=== PATIENT | female | born 1965 | race Hispanic/Latino ===

== ENCOUNTER 2025-07-23 18:22 | Emergency (ER) | payer SELFPAY ==
[~2025-07-23] VITALS: Ht 152.4 cm; Wt 49.9 kg
[2025-07-23] MEDS ORDERED: IOHEXOL-350 75 ML VIAL IV ONE (18:33)
--- NOTE | 2025-07-23 18:41 | ERN ---
ED Note History of Present Illness Stated Complaint: SLURRED SPEECH AND LEFT FACIAL DROOPING Chief Complaint: Stroke Symptoms Time Seen by MD: 18:28 Dictation: 60-year-old female presenting to the emergency department with left-sided weakness to the upper and lower extremity and left facial droop, last known well was yesterday at noon symptoms have persisted since. Patient does not give clear history but reports that she feels fine. Allergies: Coded Allergies: No Known Drug Allergies (Unverified Allergy, Unknown, 07/23/25) Past Medical History Past Medical History: Diabetes-Type II, Hypertension Surgical History: Other Surgical History Other: RIGHT FOOT SURGERY WITH METAL IMPLANT Review of System Dictation Constitutional: Negative for fever,chills, and weight loss Eyes: Negative for injury, pain,redness, and discharge ENT: Negative for injury,pain or swelling Cardiovascular: Negative for chest pain, palpitations, and edema Respiratory: Negative for shortness of breath, cough, and wheezing, Abdomen/GI: Negative for abdominal pain, nausea, vomiting, diarrhea, and constipation Back: Negative for injury and pain : Negative for injury, bleeding and discharge MS/Extremity: Negative for injury and deformity Skin: Negative for rash, and discoloration Neuro: Per HPI Initial Vital Sign VS Vital Signs Date Time Temp Pulse Resp B/P (MAP) Pulse Ox O2 Delivery O2 Flow Rate FiO2 07/23/25 18:24 97.9 110 16 193/116 99 Room Air 07/23/25 18:55 0 21 Physical Exam Dictation General: awake, alert, appears ill Head/Face: Normocephalic, atraumatic Eyes: PERRL, EOMI, vision at baseline ENT: oral cavity clear, TMs clear, no signs of infection Neck: Trachea midline, supple, no nuchal rigidity Cardiovascular: RRR, normal S1/S2, No MRGs, no JVD Respiratory: CTAB, no respiratory distress, No rales or wheezes Abdomen: Soft, non-tender, non-distended, normal bowel sounds, no guarding or rebound. Skin: Warm, dry, normal turgor, no rash MS/Extremity: Pulses equal, no cyanosis, neurovascular intact, FROM Neuro: COAx4, GCS 15, left upper and lower extremity weakness noted 3/5 strength, right facial droop. NIHSS of 14 by me. Results (Laboratory/Radiology) Laboratory/Radiology Laboratory Tests Test 07/23/25 18:48 White Blood Count 7.0 K/uL (4.8-10.8) Red Blood Count 3.42 MIL/uL (4.00-5.50) L Hemoglobin 10.0 g/dL (12.0-16.0) L Hematocrit 29.7 % (36-48) L Mean Corpuscular Volume 86.8 fL (79-99) Mean Corpuscular Hemoglobin 29.2 pg (27.0-33.0) Mean Corpuscular Hemoglobin Concent 33.7 g/dL (32.0-36.0) Red Cell Distribution Width 13.0 % (11.0-15.5) Platelet Count 310 K/uL (130-400) Mean Platelet Volume 9.8 fL (7.5-10.5) Immature Granulocyte % (Auto) 0.7 % (0-1) Neutrophils (%) (Auto) 75.8 % (40.0-77.0) Lymphocytes (%) (Auto) 17.0 % (21.0-51.0) L Monocytes (%) (Auto) 5.2 % (3.0-13.0) Eosinophils (%) (Auto) 0.7 % (0.0-8.0) Basophils (%) (Auto) 0.6 % (0.0-5.0) Neutrophils # (Auto) 5.3 K/uL (1.8-7.7) Lymphocytes # (Auto) 1.2 K/uL (1.0-4.8) Monocytes # (Auto) 0.4 K/uL (0.1-1.0) Eosinophils # (Auto) 0.05 K/uL (0.00-0.70) Basophils # (Auto) 0.04 K/uL (0.00-0.20) Absolute Immature Granulocyte (auto 0.05 K/uL (0-1) Nucleated Red Blood Cells 0.0 % (0.0-0.19) Prothrombin Time 10.6 SEC (9.6-11.6) Prothromb Time International Ratio 1.00 (0.85-1.15) Activated Partial Thromboplast Time 25.3 SEC (26.3-35.5) L Sodium Level 128 mmol/L (136-145) L Potassium Level 4.5 mmol/L (3.5-5.1) Chloride Level 96 mmol/L (101-111) L Carbon Dioxide Level 24 mmol/L (21-32) Blood Urea Nitrogen 25 mg/dL (7-18) H Creatinine 1.1 mg/dL (0.5-1.0) H Glomerular Filtration Rate Calc 58 mL/min (>90) Random Glucose 235 mg/dL (70-105) H Total Calcium 8.0 mg/dL (8.5-10.1) L Total Bilirubin 0.5 mg/dL (0.2-1.0) Direct Bilirubin 0.1 mg/dL (0.0-0.3) Aspartate Amino Transf (AST/SGOT) 10 U/L (10-37) Alanine Aminotransferase (ALT/SGPT) 13 U/L (12-78) Alkaline Phosphatase 52 U/L (50-136) Total Creatine Kinase 12 U/L (21-232) L Troponin I High Sensitivity 4 ng/L (4-50) Total Protein 6.8 g/dL (6.0-8.3) Albumin 2.7 g/dL (3.5-5.0) L Labs Reviewed?: Yes EKG: (+) NSR, (+) rhythm, (+) nonspecific ST T wave chg, (+) nonspecific ST T wave chg ED Course ED Course Orders Procedure Category Date Status Time Ct Head/Brain W/O CT 07/23/25 Resulted Contrast 18:29 Ct Angio Head And Neck CT 07/23/25 Resulted 18:29 12 Lead Ekg Tracing- EKG 07/23/25 Complete Technical 18:29 Basic Metabolic Panel LAB 07/23/25 Complete 18:29 Cbc With Differential LAB 07/23/25 Complete 18:29 Hepatic Function Panel LAB 07/23/25 Complete 18:29 Creatine Kinase, Total LAB 07/23/25 Complete 18:29 Troponin I High LAB 07/23/25 Complete Sensitivity 18:29 Pt And Ptt LAB 07/23/25 Complete 18:29 Chest 1vw RAD 07/23/25 Resulted 18:29 Iohexol (Omnipaque) PHA 07/23/25 Complete 18:33 Aspirin 81mg Chew Tab PHA 07/23/25 Complete (Aspirin 81mg Chew 19:30 Aspirin 300mg Supp PHA 07/23/25 Complete (Aspirin 300mg Supp) 20:30 Current Medications Medications (Trade) Dose Ordered Sig/Brent Route PRN Reason Start Time Stop Time Status Last Admin Dose Admin Aspirin (Aspirin 300mg Supp) 300 mg ONCE ONCE ME 07/23/25 20:30 07/23/25 20:31 DC 07/23/25 20:44 Aspirin (Aspirin 81mg Chew Tab) 81 mg ONCE ONCE PO 07/23/25 19:30 07/23/25 19:31 DC Iohexol (Omnipaque) 75 ml STK-MED ONCE IV 07/23/25 18:33 07/23/25 18:33 DC Vital Signs Date Time Temp Pulse Resp B/P (MAP) Pulse Ox O2 Delivery O2 Flow Rate FiO2 07/23/25 22:01 98.8 98 18 130/66 100 Room Air* 0 21 07/23/25 20:18 98.8 101 18 155/111 99 Room Air* 0 21 07/23/25 18:55 107 14 178/102 98 Room Air* 0 21 07/23/25 18:24 97.9 110 16 193/116 99 Room Air Medical Decision Making MDM MDM: Differential diagnosis: Rationale: Tests considered and ordered secondary to shared decision making include: labs, ECG and radiology Previous outside records reviewed: Old ER visits. Risk of complication and/or morbidity or mortality of patient management: None Medications-Per medication reconciliation Need for hospitalization: Patient does meet criteria for hospitalization. Need for emergency major/minor surgery: No There are no social concerns with this patient. Prescription drug management Prescriptions will include symptomatic care Patient's prior external medical records from other ER visits were reviewed by me as indicated. Prior testing and results from previous visits were reviewed. Prior tests were taken into account with medical decision making and resource utilization, independent historian/historians were used to obtain complete medical history. I independently interpreted the test that were performed, results were reviewed by me and considered findings on radiology if ordered. Medical management and examination interpretation discussions were had by me with other qualified healthcare professionals as indicated for the patient's care. 60-year-old female with signs of LV 0, acute ischemic stroke, NIH stroke scale of 11 on arrival outside of thrombolytic window due to last known well time being yesterday noon, onset of endovascular therapy window due to over 24 hours, CT head and CT angio of the head and neck ordered, we will allow for permissive hypertension and full-dose aspirin we will transfer to [facility] stroke center. Patient handed off at shift change pending transfer set up oncoming physician Dr Lopez, made aware of plan and therapy, patient should be NPO and advised house soup of transfer. Critical Care Note Comment(s) Total critical care time was 33 minutes. Excluding time for procedures. Management of critically ill patient with concern for acute decompensation. Management included interpretation of laboratory values and imaging, hemodynamics, time for consultation with consultants and admitting physician. DX & DISP Disposition: Transfer Departure Impression: Primary Impression: CVA (cerebral vascular accident) Additional Impression: Arterial ischemic stroke, MCA (middle cerebral artery), right, acute Condition: Stable Case discussed with the neurosurgeon vascular Dr. ragland who accepted the transfer/consult pending hospitalist team from [facility] to call back to proceed with the transfer. Received a call from transfer center, patient was accepted at [facility] by hospitalist. LIMA DUPREE MD Jul 23, 2025 18:41 SHAHID MELGAR MD Jul 23, 2025 19:21
--- NOTE | 2025-07-23 18:52 | EKG ---
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
--- NOTE | 2025-07-23 18:52 | HMCIMG ---
EXAM: CT Head Without IV contrast. CLINICAL HISTORY: CVA TECHNIQUE: Axial computed tomography images of the head/brain without intravenous contrast. COMPARISON: None provided. FINDINGS: BRAIN: No evidence of acute hemorrhage. No mass lesion. No CT evidence for acute territorial infarct. No midline shift or extra-axial collections. Diffuse cerebral volume loss in the form of prominent cortical sulci and the ventricular system. Gliosis in the right parietooccipital region. Diffuse hypodensities in the bilateral periventricular white matter are suggestive of moderate chronic small-vessel ischemic changes. VENTRICLES: No hydrocephalus. ORBITS: The orbits are unremarkable. SINUSES AND MASTOIDS: The paranasal sinuses and mastoid air cells are clear. BONES: No fracture. SOFT TISSUES: Unremarkable. IMPRESSION: No acute intracranial abnormality. No acute intracranial hemorrhage/territorial infarct. Diffuse cerebral volume loss with chronic small vessel ischemic changes. Gliosis in the right parietooccipital region. Recommend an MRI of the brain with diffusion-weighted images if the symptoms persist. /[place]
[2025-07-23 18:58] LABS: IMMATURE GRANULOCYTE ABSOLUTE 0.05 K/uL (0-1); NUCLEATED RED BLOOD CELLS 0.0 % (0.0-0.19); PLATELET COUNT (AUTO) 310 K/uL (130-400); RED BLOOD CELL COUNT(AUTO) 3.42 MIL/uL (4.00-5.50); RED CELL DISTRIBUTION WIDTH 13.0 % (11.0-15.5); WHITE BLOOD COUNT (AUTO) 7.0 K/uL (4.8-10.8)
[2025-07-23 19:07] LABS: CREATININE 1.1 mg/dL (0.5-1.0); GLOMERULAR FILTR. RATE CALC 58.0 mL/min (>90); GLUCOSE,RANDOM 235.0 mg/dL (70-105); SODIUM SERUM 128.0 mmol/L (136-145); UREA NITROGEN, BLOOD 25.0 mg/dL (7-18)
--- NOTE | 2025-07-23 19:07 | NUR ---
TRANSFER CENTER CONTACTED. TRANSFER INITIATED.
[2025-07-23 19:10] LABS: INR 1.0 (0.85-1.15)
[2025-07-23 19:13] LABS: ASPARTATE AMINOTRANSFERASE 10.0 U/L (10-37); CREATINE KINASE, TOTAL 12.0 U/L (21-232); TOTAL PROTEIN, SERUM 6.8 g/dL (6.0-8.3)
--- NOTE | 2025-07-23 19:16 | NUR ---
DR WEINER SPOKE WITH DR [facility].
--- NOTE | 2025-07-23 19:29 | HMCIMG ---
EXAM: CTA Head and Neck with and without Intravenous Contrast. CLINICAL HISTORY: CVA TECHNIQUE: Axial CTA images of the head and neck were performed with and without intravenous contrast in the arterial phase. Coronal and sagittal reformatted images were generated and reviewed. 3-D reformatted images generated on an independent workstation were also reviewed. NASCET criteria were used in assessment of stenosis. CONTRAST: Contrast injected without incident. COMPARISON: None provided. FINDINGS: VASCULATURE:NECK: COMMON CAROTID ARTERIES Atherosclerotic calcifications in the bilateral carotid bulbs. No significant stenosis. No dissection or occlusion. EXTERNAL CAROTID ARTERIES Patent. INTERNAL CAROTID ARTERIES No stenosis by NASCET criteria. No dissection or occlusion. VERTEBRAL ARTERIES No significant stenosis. No dissection or occlusion. HEAD: ANTERIOR CEREBRAL ARTERIES No significant stenosis. No occlusion. No aneurysm. MIDDLE CEREBRAL ARTERIES No significant stenosis. No occlusion. No aneurysm. POSTERIOR CEREBRAL ARTERIES No significant stenosis. No occlusion. No aneurysm. BASILAR ARTERY No significant stenosis. No occlusion. No aneurysm. OTHER: SOFT TISSUES No acute finding. BONES No acute osseous abnormality. Mild degenerative cervical spondylosis. IMPRESSION: Cerebral vasculature is patent. No significant carotid stenosis. /[place]
--- NOTE | 2025-07-23 19:39 | HMCIMG ---
EXAM CR chest, 1 view CLINICAL HISTORY GBW COMPARISON None provided FINDINGS LUNGS Minimal left basilar atelectasis is present. No focal airspace consolidation is identified. PLEURAL SPACES Mild blunting of the left costophrenic angle, which may reflect a small pleural effusion or pleural thickening. No pneumothorax is seen. MEDIASTINUM The cardiomediastinal silhouette is within normal limits. BONES No acute osseous abnormality is identified. IMPRESSION * Minimal left basilar atelectasis with mild blunting of the left costophrenic angle, which may reflect a small pleural effusion or pleural thickening. /[place]
[2025-07-23] MEDS: ASPIRIN 81MG CHEW TAB PO ONE (20:23)
[2025-07-23] MEDS: ASPIRIN 300 MG SUPPOSITORY PR ONE (20:44)
[2025-07-23] MEDS ORDERED: ASPIRIN 300 MG SUPPOSITORY PR ONE (20:44)
--- NOTE | 2025-07-23 21:39 | NUR ---
PATIENT ACCEPTED TO [facility] ROOM 1338, ADMITTING PHYSICIAN DR TRELL SCHAEFER, [facility] REEMA BURNS, PT ACCEPTED AT 1928.
--- NOTE | 2025-07-23 21:43 | NUR ---
[facility] CALLED FOR TRANSFER TO [facility]
--- NOTE | 2025-07-23 22:01 | NUR ---
REPORT GIVEN TO [facility] [place]- [facility] LOCKSTITCHNERIS SUAREZ
[2025-07-23 23:12] VITALS: BP 139/89; PULSE 82; RESP 16; TEMP 98.8; O2SAT 100
--- NOTE | 2025-07-23 23:21 | NUR ---
EMS HERE TO TRANSFER PATIENT TO [facility]-
== END 2025-07-23 23:29 | disposition short-term general hospital (02) ==
LOC: EDH 18:22
DX: I63.511 Cerebral infarction due to unspecified occlusion or stenosis of right middle cerebral artery (principal); I10 Essential (primary) hypertension; E11.9 Type 2 diabetes mellitus without complications; R29.810 Facial weakness
CPT/HCPCS: 99291; 70496; 71045; 82550; 80076; 84484; 80048; 85025; 85610; 85730; 36415; 70498; 93005; 70450; Q9967; 99285